=== PATIENT | female | born 1995 | race Caucasian/White ===

== ENCOUNTER 2016-12-31 13:06 | Emergency (ER) | payer BC ==
[2016-12-31] MEDS ORDERED: ONDANSETRON 4 MG TAB.RAPDIS SL ONE (13:14)
--- NOTE | 2016-12-31 13:16 | ER Document Report ---
ED Medical Screen (RME) - General Chief Complaint: Nausea/Vomiting Stated Complaint: VOMITING Time Seen by Provider: 12/31/16 13:13 Mode of Arrival: Wheelchair Information source: Patient TRAVEL OUTSIDE OF THE U.S. IN LAST 30 DAYS: No - HPI Patient complains to provider of: Nausea and vomiting Onset: This morning Notes: 12/31/16 13:15 Patient is a 21-year-old female presenting to the emergency room today complaining of nausea and vomiting with diffuse abdominal pain that started this morning, she has been having intermittent episodes and has been seen by her primary care provider with no official diagnosis, she denies diarrhea, no fever, denies being - Related Data Allergies/Adverse Reactions: No Known Allergies Allergy (Verified 12/31/16 13:12) Past Medical History Renal/ Medical History: Denies: Hx Peritoneal Dialysis Physical Exam - Vital signs Vitals: Temp Pulse Resp BP Pulse Ox 97.5 F 77 16 124/86 H 100 12/31/16 13:08 12/31/16 13:08 12/31/16 13:08 12/31/16 13:08 12/31/16 13:08 Course - Vital Signs Vital signs: Temp Pulse Resp BP Pulse Ox 97.5 F 77 16 124/86 H 100 12/31/16 13:08 12/31/16 13:08 12/31/16 13:08 12/31/16 13:08 12/31/16 13:08
[2016-12-31] MEDS: NORMAL SALINE 1000 ML 1,000 ML IV PRN ×2 (13:23→13:54)
[2016-12-31 13:38] LABS: ABSOLUTE BASOPHILS # (AUTO) 0.1 10^3/uL (0.0-0.2); ABSOLUTE EOSINOPHILS # (AUTO) 0.1 10^3/uL (0.0-0.6); ABSOLUTE MONOCYTES (AUTO) 0.4 10^3/uL (0.1-1.4); ABSOLUTE NEUT (AUTO) 10.2 10^3/uL (1.7-8.2); BASOPHILS % (AUTO) 0.9 % (0-2); EOSINOPHILS % (AUTO) 0.6 % (0-6); HEMATOCRIT 39.4 % (36.0-47.0); HEMOGLOBIN 13.2 g/dL (12.0-15.5); HGB HCT DIFFERENCE 0.2; LYMPHOCYTES % (AUTO) 15.4 % (13-45); MEAN CORPUSCULAR HEMOGLOBIN 28.3 pg (27.0-33.4); MEAN CORPUSCULAR HGB CONC 33.6 g/dL (32.0-36.0); MEAN CORPUSCULAR VOLUME 84 fl (80-97); MONOCYTES % (AUTO) 2.8 % (3-13); RED BLOOD COUNT 4.68 10^6/uL (3.72-5.28); RED CELL DISTRIBUTION WIDTH 13.8 % (11.5-14.0); SEGMENTED NEUTROPHILS % (AUTO) 80.3 % (42-78); WHITE BLOOD COUNT 12.8 10^3/uL (4.0-10.5)
[2016-12-31] MEDS ORDERED: ONDANSETRON HCL INJ/PF 4 MG/2 ML SDV IV ONE (13:44)
--- NOTE | 2016-12-31 13:48 | ER Document Report ---
ED GI/ - General Chief Complaint: Nausea/Vomiting Stated Complaint: VOMITING Time Seen by Provider: 12/31/16 13:13 Mode of Arrival: Wheelchair Information source: Patient Notes: Patient presents complaining of abdominal pain with nausea and vomiting that started yesterday. Patient states that her vomiting symptoms started first and then the abdominal pain came afterwards. Patient states that she has had frequent episodes of abdominal pain with nausea and vomiting off and on for the past 5 months. Patient denies any diarrhea, fever, or urinary symptoms. Patient denies any vaginal bleeding or discharge. Patient denies any concern for . TRAVEL OUTSIDE OF THE U.S. IN LAST 30 DAYS: No - HPI Patient complains to provider of: Abdominal pain, Vomiting. No: Diarrhea Onset: Yesterday Timing/Duration: Persistent Quality of pain: No pain Severity at maximum: Mild Severity in ED: None Pain Level: Denies Vaginal bleeding (Compared to normal period): None Sexual history: Active Associated symptoms: Nausea, Vomiting. denies: Constipation, Diarrhea, Dysuria , Fever, Loss of appetite, Urinary hesitancy, Urinary frequency, Urinary retention, Urinary urgency, Vaginal discharge Exacerbated by: Denies Relieved by: Denies Similar symptoms previously: Yes Recently seen / treated by doctor: No - Related Data Allergies/Adverse Reactions: No Known Allergies Allergy (Verified 12/31/16 13:12) Past Medical History - General Information source: Patient - Social History Smoking Status: Never Smoker Frequency of alcohol use: None Drug Abuse: None Lives with: Spouse/Significant other Family History: Reviewed & Not Pertinent - Medical History Medical History: Negative Renal/ Medical History: Denies: Hx Peritoneal Dialysis Surgical Hx: Negative Review of Systems - Review of Systems Constitutional: No symptoms reported. denies: Fever, Recent illness EENT: No symptoms reported Cardiovascular: No symptoms reported. denies: Chest pain Respiratory: No symptoms reported. denies: Cough, Wheezing Gastrointestinal: Abdominal pain, Nausea, Vomiting, Poor fluid intake. denies: Diarrhea, Constipation Genitourinary: No symptoms reported. denies: Dysuria, Flank pain Female Genitourinary: No symptoms reported Musculoskeletal: No symptoms reported. denies: Back pain Skin: No symptoms reported Hematologic/Lymphatic: No symptoms reported Neurological/Psychological: No symptoms reported. denies: Confusion, Headaches Physical Exam - Vital signs Vitals: Temp Pulse Resp BP Pulse Ox 97.5 F 77 16 124/86 H 100 12/31/16 13:08 12/31/16 13:08 12/31/16 13:08 12/31/16 13:08 12/31/16 13:08 - General General appearance: Appears well, Alert In distress: None - HEENT Head: Normocephalic, Atraumatic Eyes: Normal Conjunctiva: Normal Nasal: Normal Mouth/Lips: Normal Mucous membranes: Normal Pharynx: Normal Neck: Normal, Supple. No: Lymphadenopathy - Respiratory Respiratory status: No respiratory distress Chest status: Nontender Breath sounds: Normal. No: Rales, Rhonchi, Stridor, Wheezing Chest palpation: Normal - Cardiovascular Rhythm: Regular Heart sounds: S1 appreciated, S2 appreciated Murmur: No - Abdominal Inspection: Normal Distension: No distension Bowel sounds: Normal Tenderness: Nontender Organomegaly: No organomegaly - Back Back: Normal, Nontender. No: CVA tenderness - Extremities General upper extremity: Normal inspection, Normal ROM General lower extremity: Normal inspection, Normal ROM - Neurological Neuro grossly intact: Yes Cognition: Normal [place] Coma Scale Eye Opening: Spontaneous [place] Coma Scale Verbal: Oriented [place] Coma Scale Motor: Obeys Commands [place] Coma Scale Total: 15 - Psychological Associated symptoms: Normal affect, Normal mood - Skin Skin Temperature: Warm Skin Moisture: Dry Skin Color: Normal Course - Re-evaluation Re-evalutation: 12/31/16 15:46 Patient states the vomiting had stopped but then just started up. Patient without any abdominal tenderness at this time. 12/31/16 16:30 Patient is requesting to have food as she thinks that her symptoms are a result of not eating 12/31/16 17:22 Patient continues to deny any abdominal pain. Patient states that her nausea symptoms have resolved. Patient is tolerating oral fluids without emesis. Crackers provided. 12/31/16 17:59 Patient's abdomen soft, nontender, no guarding. Patient tolerating juice and crackers without emesis. Patient states she is feeling much better. Patient advised that she will need to follow-up with metal spraying machine operator for further evaluation. - Vital Signs Vital signs: Temp Pulse Resp BP Pulse Ox 98.4 F 78 16 117/66 99 12/31/16 18:14 12/31/16 18:14 12/31/16 13:08 12/31/16 18:14 12/31/16 18:14 - Laboratory Result Diagrams: 12/31/16 13:20 12/31/16 13:20 Laboratory results interpreted by me: 12/31/16 12/31/16 12/31/16 13:20 13:20 14:34 WBC 12.8 H Seg Neutrophils % 80.3 H Monocytes % 2.8 L Absolute Neutrophils 10.2 H Carbon Dioxide 18 L Anion Gap 20 H Glucose 151 H Calcium 11.0 H Total Protein 8.3 H Albumin 5.4 H Urine Ketones 20 H 12/31/16 16:30 Labs- Entire Visit 12/31/16 12/31/16 12/31/16 13:20 13:20 13:20 WBC 12.8 H RBC 4.68 Hgb 13.2 Hct 39.4 MCV 84 MCH 28.3 MCHC 33.6 RDW 13.8 Plt Count 276 Seg Neutrophils % 80.3 H Lymphocytes % 15.4 Monocytes % 2.8 L Eosinophils % 0.6 Basophils % 0.9 Absolute Neutrophils 10.2 H Absolute Lymphocytes 2.0 Absolute Monocytes 0.4 Absolute Eosinophils 0.1 Absolute Basophils 0.1 Sodium 141.8 Potassium 4.0 Chloride 104 Carbon Dioxide 18 L Anion Gap 20 H BUN 8 Creatinine 0.65 Est GFR ( Amer) > 60 Est GFR (Non-Af Amer) > 60 Glucose 151 H Calcium 11.0 H Total Bilirubin 1.2 Direct Bilirubin 0.4 Indirect Bilirubin Not Reportable Neonat Total Bilirubin Not Reportable AST 29 ALT 28 Alkaline Phosphatase 74 Total Protein 8.3 H Albumin 5.4 H Lipase 97.6 Serum HCG, Qual NEGATIVE Urine Color Urine Appearance Urine pH Ur Specific [place] Urine Protein Urine Glucose (UA) Urine Ketones Urine Blood Urine Nitrite Urine Bilirubin Urine Urobilinogen Ur Leukocyte Esterase Urine WBC (Auto) Urine RBC (Auto) Urine Bacteria (Auto) Urine Ascorbic Acid 12/31/16 14:34 WBC RBC Hgb Hct MCV MCH MCHC RDW Plt Count Seg Neutrophils % Lymphocytes % Monocytes % Eosinophils % Basophils % Absolute Neutrophils Absolute Lymphocytes Absolute Monocytes Absolute Eosinophils Absolute Basophils Sodium Potassium Chloride Carbon Dioxide Anion Gap BUN Creatinine Est GFR ( Amer) Est GFR (Non-Af Amer) Glucose Calcium Total Bilirubin Direct Bilirubin Indirect Bilirubin Neonat Total Bilirubin AST ALT Alkaline Phosphatase Total Protein Albumin Lipase Serum HCG, Qual Urine Color STRAW Urine Appearance CLEAR Urine pH 8.0 Ur Specific [place] 1.005 Urine Protein NEGATIVE Urine Glucose (UA) NEGATIVE Urine Ketones 20 H Urine Blood NEGATIVE Urine Nitrite NEGATIVE Urine Bilirubin NEGATIVE Urine Urobilinogen NEGATIVE Ur Leukocyte Esterase NEGATIVE Urine WBC (Auto) 1 Urine RBC (Auto) 1 Urine Bacteria (Auto) TRACE Urine Ascorbic Acid NEGATIVE 12/31/16 17:59 Labs- Entire Visit 12/31/16 12/31/16 12/31/16 13:20 13:20 13:20 WBC 12.8 H RBC 4.68 Hgb 13.2 Hct 39.4 MCV 84 MCH 28.3 MCHC 33.6 RDW 13.8 Plt Count 276 Seg Neutrophils % 80.3 H Lymphocytes % 15.4 Monocytes % 2.8 L Eosinophils % 0.6 Basophils % 0.9 Absolute Neutrophils 10.2 H Absolute Lymphocytes 2.0 Absolute Monocytes 0.4 Absolute Eosinophils 0.1 Absolute Basophils 0.1 Sodium 141.8 Potassium 4.0 Chloride 104 Carbon Dioxide 18 L Anion Gap 20 H BUN 8 Creatinine 0.65 Est GFR ( Amer) > 60 Est GFR (Non-Af Amer) > 60 Glucose 151 H Calcium 11.0 H Total Bilirubin 1.2 Direct Bilirubin 0.4 Indirect Bilirubin Not Reportable Neonat Total Bilirubin Not Reportable AST 29 ALT 28 Alkaline Phosphatase 74 Total Protein 8.3 H Albumin 5.4 H Lipase 97.6 Serum HCG, Qual NEGATIVE Urine Color Urine Appearance Urine pH Ur Specific [place] Urine Protein Urine Glucose (UA) Urine Ketones Urine Blood Urine Nitrite Urine Bilirubin Urine Urobilinogen Ur Leukocyte Esterase Urine WBC (Auto) Urine RBC (Auto) Urine Bacteria (Auto) Urine Ascorbic Acid 12/31/16 14:34 WBC RBC Hgb Hct MCV MCH MCHC RDW Plt Count Seg Neutrophils % Lymphocytes % Monocytes % Eosinophils % Basophils % Absolute Neutrophils Absolute Lymphocytes Absolute Monocytes Absolute Eosinophils Absolute Basophils Sodium Potassium Chloride Carbon Dioxide Anion Gap BUN Creatinine Est GFR ( Amer) Est GFR (Non-Af Amer) Glucose Calcium Total Bilirubin Direct Bilirubin Indirect Bilirubin Neonat Total Bilirubin AST ALT Alkaline Phosphatase Total Protein Albumin Lipase Serum HCG, Qual Urine Color STRAW Urine Appearance CLEAR Urine pH 8.0 Ur Specific [place] 1.005 Urine Protein NEGATIVE Urine Glucose (UA) NEGATIVE Urine Ketones 20 H Urine Blood NEGATIVE Urine Nitrite NEGATIVE Urine Bilirubin NEGATIVE Urine Urobilinogen NEGATIVE Ur Leukocyte Esterase NEGATIVE Urine WBC (Auto) 1 Urine RBC (Auto) 1 Urine Bacteria (Auto) TRACE Urine Ascorbic Acid NEGATIVE Discharge - Discharge Clinical Impression: Nausea and vomiting Qualifiers: Vomiting type: unspecified Vomiting Intractability: non-intractable Qualified Code(s): R11.2 - Nausea with vomiting, unspecified Condition: Stable Disposition: HOME, SELF-CARE Instructions: Antinausea Medication ([facility]), Family Physicians / Practices, Intravenous (IV) Fluids ([facility]), Vomiting ([facility]) Additional Instructions: Return immediately for any new or worsening symptoms Followup with your primary care provider, call tomorrow to make a followup appointment Follow-up with a metal spraying machine operator for further evaluation Prescriptions: Omeprazole Magnesium [Prilosec Otc] 20 mg PO DAILY #15 tablet. Ondansetron HCl [Zofran 4 mg Tablet] 1 - 2 tab PO Q6 PRN #15 tablet PRN Reason: Sucralfate [Carafate 1 gm Tablet] 1 gm PO ACHS #40 tablet Referrals: [facility] [Provider Group] - Follow up as needed SEAN NEGRON MD [ACTIVE STAFF] - Follow up in 3-5 days ERIC WHITE MD [ACTIVE STAFF] - Follow up as needed
[2016-12-31 13:58] LABS: ALANINE AMINOTRANSFERASE 28 U/L (9-52); ALBUMIN 5.4 g/dL (3.5-5.0); ALKALINE PHOSPHATASE 74 U/L (38-126); ASPARTATE AMINO TRANSFERASE 29 U/L (14-36); BILIRUBIN,DIRECT 0.4 mg/dL (0.0-0.4); BILIRUBIN,TOTAL 1.2 mg/dL (0.2-1.3); BLOOD UREA NITROGEN 8 mg/dL (7-20); CARBON DIOXIDE 18 mmol/L (22-30); CHLORIDE 104 mmol/L (98-107); CREATININE RESULT 0.65 mg/dL (0.52-1.25); GLUCOSE 151 mg/dL (75-110); LIPASE 97.6 U/L (23-300); SODIUM 141.8 mmol/L (137-145); TOTAL PROTEIN 8.3 g/dL (6.3-8.2)
[2016-12-31 14:02] LABS: ANION GAP 20 (5-19)
[2016-12-31 15:05] LABS: APPEARANCE,URINE CLEAR; BILIRUBIN,URINE NEGATIVE (NEGATIVE); GLUCOSE, URINE NEGATIVE (NEGATIVE); KETONES,URINE 20 mg/dL (NEGATIVE); LEUKOCYTE ESTERASE,URINE NEGATIVE (NEGATIVE); NITRITE,URINE NEGATIVE (NEGATIVE); PROTEIN,URINE NEGATIVE (NEGATIVE); URINE SPECIFIC GRAVITY 1.005; UROBILINOGEN,URINE NEGATIVE mg/dL (<2.0)
[2016-12-31] MEDS ORDERED: METOCLOPRAMIDE HCL INJ/PF 10 MG/2 ML SDV IV ONE (15:46)
[2016-12-31] MEDS ORDERED: NORMAL SALINE 1000 ML 1,000 ML IV PRN (15:46)
[2016-12-31] MEDS ORDERED: FAMOTIDINE INJ/PF 20 MG/2 ML SDV IV ONE (16:09)
[2016-12-31 18:35] VITALS: BP 117/66
== END 2016-12-31 18:31 | disposition home or self-care (01) ==
LOC: ER 13:06
DX: R11.2 Nausea with vomiting, unspecified (principal); R10.9 Unspecified abdominal pain
CPT/HCPCS: 99283; 96361; 96374; 96375; 36415; 87086; 83690; 84703; 85025; 80053; 81001; S0119; J2765; J2405; J7030; S0028

== ENCOUNTER 2017-07-07 18:49 | Emergency (ER) | payer BC ==
--- NOTE | 2017-07-07 19:17 | ER Document Report ---
ED Medical Screen (RME) - General Chief Complaint: Suicidal Ideation Stated Complaint: IVC Time Seen by Provider: 07/07/17 19:10 Mode of Arrival: Ambulatory Information source: Patient Notes: 21-year-old female presents with concerns of self-harm gesture. Patient denies suicidal ideations states that she took 5 hydrocodone's which are her own pills so she can go to sleep patient states she does not know why she did this but that she is not happy with herself I have greeted and performed a rapid initial assessment of this patient. A comprehensive ED assessment and evaluation of the patient, analysis of test results and completion of the medical decision making process will be conducted by additional ED providers. PHYSICAL EXAMINATION: GENERAL: Well-appearing, well-nourished and in no acute distress. HEAD: Atraumatic, normocephalic. EYES: Pupils equal round extraocular movements intact, conjunctiva are normal. ENT: Nares patent NECK: Normal range of motion LUNGS: No respiratory distress Musculoskeletal: Normal range of motion NEUROLOGICAL: Normal speech, normal gait. PSYCH: Normal mood, normal affect. SKIN: Warm, Dry, normal turgor, no rashes or lesions noted. TRAVEL OUTSIDE OF THE U.S. IN LAST 30 DAYS: No - HPI Onset: Just prior to arrival Onset/Duration: Sudden Quality of pain: No pain Severity: None Pain Level: Denies Associated Symptoms: None Exacerbated by: Denies Relieved by: Denies Similar symptoms previously: No Recently seen / treated by doctor: No - Related Data Allergies/Adverse Reactions: No Known Allergies Allergy (Verified 12/31/16 13:12) Past Medical History - Social History Cigarette use (# per day): No Chew tobacco use (# tins/day): No Renal/ Medical History: Denies: Hx Peritoneal Dialysis Physical Exam - Vital signs Vitals: Temp Pulse BP Pulse Ox 97.7 F 86 129/84 H 99 07/07/17 18:56 07/07/17 18:56 07/07/17 18:56 07/07/17 18:56 Course - Vital Signs Vital signs: Temp Pulse Resp BP Pulse Ox 97.7 F 86 129/84 H 99 07/07/17 18:56 07/07/17 18:56 07/07/17 18:56 07/07/17 18:56
[2017-07-07 20:11] LABS: APPEARANCE,URINE SLIGHTLY-CLOUDY; BILIRUBIN,URINE NEGATIVE (NEGATIVE); COLOR,URINE YELLOW; GLUCOSE, URINE NEGATIVE (NEGATIVE); KETONES,URINE 20 mg/dL (NEGATIVE); LEUKOCYTE ESTERASE,URINE SMALL (NEGATIVE); NITRITE,URINE NEGATIVE (NEGATIVE); PROTEIN,URINE NEGATIVE (NEGATIVE); URINE SPECIFIC GRAVITY 1.009; UROBILINOGEN,URINE NEGATIVE mg/dL (<2.0)
[2017-07-07] MEDS ORDERED: CEPHALEXIN 500 MG CAPSULE PO SCH (20:15)
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
[2017-07-07 20:20] LABS: ABSOLUTE EOSINOPHILS # (AUTO) 0.2 10^3/uL (0.0-0.6); ABSOLUTE LYMPHOCYTES (AUTO) 1.4 10^3/uL (0.5-4.7); ABSOLUTE MONOCYTES (AUTO) 0.7 10^3/uL (0.1-1.4); ABSOLUTE NEUT (AUTO) 12.2 10^3/uL (1.7-8.2); BASOPHILS % (AUTO) 0.3 % (0-2); EOSINOPHILS % (AUTO) 1.2 % (0-6); HEMATOCRIT 40.1 % (36.0-47.0); HEMOGLOBIN 13.3 g/dL (12.0-15.5); LYMPHOCYTES % (AUTO) 9.5 % (13-45); MEAN CORPUSCULAR HEMOGLOBIN 28.8 pg (27.0-33.4); MEAN CORPUSCULAR HGB CONC 33.3 g/dL (32.0-36.0); MEAN CORPUSCULAR VOLUME 87 fl (80-97); MONOCYTES % (AUTO) 4.6 % (3-13); PLATELET COUNT 303 10^3/uL (150-450); RED BLOOD COUNT 4.63 10^6/uL (3.72-5.28); RED CELL DISTRIBUTION WIDTH 13.3 % (11.5-14.0); SEGMENTED NEUTROPHILS % (AUTO) 84.4 % (42-78); TOTAL CELLS COUNTED % (AUTO) 100 %; WHITE BLOOD COUNT 14.4 10^3/uL (4.0-10.5)
[2017-07-07 20:27] LABS: URINE AMPHETAMINES SCREEN NEGATIVE; URINE BARBITURATES SCREEN NEGATIVE; URINE BENZODIAZEPINES SCREEN NEGATIVE; URINE COCAINE SCREEN NEGATIVE; URINE MARIJUANA (THC) SCREEN UNCONFIRMED POSITIVE; URINE METHADONE SCREEN NEGATIVE; URINE PHENCYCLIDINE SCREEN NEGATIVE
[2017-07-07 20:31] LABS: ALANINE AMINOTRANSFERASE 32 U/L (9-52); ALBUMIN 4.9 g/dL (3.5-5.0); ALKALINE PHOSPHATASE 86 U/L (38-126); ANION GAP 12 (5-19); ASPARTATE AMINO TRANSFERASE 23 U/L (14-36); BILIRUBIN,DIRECT 0.4 mg/dL (0.0-0.4); BILIRUBIN,TOTAL 0.7 mg/dL (0.2-1.3); BLOOD UREA NITROGEN 9 mg/dL (7-20); CALCIUM 10.1 mg/dL (8.4-10.2); CARBON DIOXIDE 28 mmol/L (22-30); CHLORIDE 101 mmol/L (98-107); GLUCOSE 93 mg/dL (75-110); POTASSIUM 3.7 mmol/L (3.6-5.0); SODIUM 140.8 mmol/L (137-145)
[2017-07-07 20:32] LABS: ACETAMINOPHEN < 10 ug/mL (10-30); ALCOHOL < 10 mg/dL (NONE DETECTED); SALICYLATE < 1.0 mg/dL (2.0-20.0)
--- NOTE | 2017-07-07 22:05 | EKG REPORT ---
SEVERITY:- NORMAL ECG - SINUS RHYTHM : Confirmed by: Naomi Hoyt 07-Jul-2017 22:04:27
[2017-07-07] MEDS: CEPHALEXIN 500 MG CAPSULE PO SCH (23:18)
--- NOTE | 2017-07-08 13:03 | PSYCHOLOGICAL NOTE ---
Psych Note - Psych Note Psych Note: Reason for consult: IVC, suicidal ideation Consent Permissions: , [place] Pt presents to the ED under IVC paperwork with Deputy Gomez. Per IVC paperwork pt stated to that she was going to kill herself. Per paperwork pt took 5 hydrocodone pills. When [place] arrived pt was on the floor and refused to talk to deputy. Pt has hx of depression and has been committed in the past. Per paperwork, pt has been very depressed and hitting things and hitting her face. Patient disclosed arriving to [facility] Ed via police because "I had a bad freakout...said things I should not have said and did things I should not have done." She continued to disclose that she suffers from anxiety and "sometimes I let it overwhelm me." Patient reports that she is not currently in therapy and does not have interest in going to a therapist; "I do not know I just do not like.... Talking with someone I do not know... Never really found it to be helpful...I never liked going." She continued to state that she understands her triggers are focused on situations that seem to be out of her control; "I think it is a control thing." She identifies talking it out with friends and family, listening to music, "even talking it out myself" in taking deep breaths help control her anxiety. She reports "I think that is why it hit so hard last night because I pushed everyone away yesterday." She identifies it is worse when she is by herself because she has obsessive thoughts that she fixates on. While this is been long-standing panic attacks have started just within this last year. She identifies multiple triggers leading up to panic attacks such as changing jobs moving to [place] and her 's last appointment being different with less communication availability. Patient continued to disclose "I never feel like I want to I just do not want to feel the anxiety." Patient takes clomipramine 50mg nightly; recently increased dosage in March from 25 mg. Patient's psychiatrist is in [place] at which she travels monthly to see; "my wood die maker is down there still also so I take a trip once a month to go see my wood die maker and psychiatrist." Patient joined clinician and patient at bedside. He disclosed he is comfortable with the patient returning home. He feels this was her anxiety after having an argument a couple days ago. He agrees to be part of the patient 's discharge plan to ensure she does not have acess medication or weapons and follows through with her mental health treatment. Patient is alert and orientated to person, place, time and circumstance. Mood is overall euthymic with congruent affect as evidenced by laughing and smiling and engaging with clinician. Patient does become slightly tearful when discussing anxiety and the impact it has on her life. Patient denies current suicidal and homicidal ideation stating "I never feel like I want to I just do not want to feel the anxiety." Delusions are absent and behaviors congruent with intact reality based presentation i.e. organized, linear, rational thinking. Intellectual abilities appear to be within the average range. Conversational speech was within normal rate, tone and prosody. Eye contact was well-maintained. Attention and concentration are good. Insight, judgment, impulse control are good as evidenced by patient's ability to review thoughts and emotions surrounding events in identifying triggers and why her coping skills did not adequately assist during last night event. 300.3 (F42) obsessive-compulsive disorder; intrusive, obsessive fixated thoughts per history provided by patient
[2017-07-08] MEDS: CEPHALEXIN 500 MG CAPSULE PO SCH (14:50)
[2017-07-08 16:28] VITALS: BP 99/79
--- NOTE | 2017-07-08 20:48 | ER Document Report ---
Doctor's Note Notes: 07/08/17 20:43 Patient is feeling better, no longer feeling suicidal, states that she is willing to follow-up with a therapist or counselor here locally in [place]. Agrees with new medications as recommended by mental health to include BuSpar and Effexor. Patient is no acute distress. Patient has no symptoms of urinary tract infection at this time, I reviewed her urine and the specimen is already it shows group B strep, this is colonization/contamination not true infection. Patient will not be started on antibiotics. Discharged home.
== END 2017-07-08 16:28 | disposition home or self-care (01) ==
LOC: ER 18:49
DX: T40.2X2A Poisoning by other opioids, intentional self-harm, initial encounter (principal); Y92.009 Unspecified place in unspecified non-institutional (private) residence as the place of occurrence of the external cause; X58.XXXA Exposure to other specified factors, initial encounter; N39.0 Urinary tract infection, site not specified; R82.71 Bacteriuria; R46.81 Obsessive-compulsive behavior; R45.851 Suicidal ideations
CPT/HCPCS: 36415; 80053; 80307; 81001; 84443; 84703; 85025; 87086; 87088; 93005; 93010; 99285

== ENCOUNTER 2017-11-18 14:01 | Emergency (ER) | payer BC ==
[2017-11-18 14:06] VITALS: BP 140/86
--- NOTE | 2017-11-18 14:47 | ER Document Report ---
ED Psych Disorder / Suicide - General Chief Complaint: Psych Problem Stated Complaint: PSYCH PROBLEM Time Seen by Provider: 11/18/17 14:42 Notes: 22-year-old female patient brought to the ER for evaluation by her friend. Friend states that she is "dissociated". States that she will not stop crying. 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 Patient recently moved here from [place]. Friend just moved here last night. Patient denies any suicidal ideation. Denies any homicidal ideation. Denies any hallucinations. Denies any thoughts of wanting to harm herself or others. When asked why she is crying she says I do not know. Friend states that she has been trying to wean herself off of her medications but patient does not concur. Patient denies any other symptoms at this time. States that she actually feels better since she came to the ER. TRAVEL OUTSIDE OF THE [place] IN LAST 30 DAYS: No - HPI Patient complains to provider of: No: Aggression, Agitated, Bizarre behavior, Hallucinating, Homicidal ideation, Homicidal plan, Homicidal attempt, Overdose, Suicidal ideation, Suicidal plan, Suicidal attempt, Self injury, Other Onset: Just prior to arrival Quality of pain: No pain Severity: Mild Pain Level: 0 - Related Data Allergies/Adverse Reactions: No Known Allergies Allergy (Verified 11/18/17 14:03) Past Medical History - General Information source: Patient - Social History Smoking Status: Never Smoker Cigarette use (# per day): No Frequency of alcohol use: None Drug Abuse: None Lives with: Spouse/Significant other Family History: Reviewed & Not Pertinent Patient has suicidal ideation: No Patient has homicidal ideation: No Renal/ Medical History: Denies: Hx Peritoneal Dialysis Psychiatric Medical History: Reports: Hx Depression Review of Systems - Review of Systems Constitutional: denies: Fever, Malaise, Weakness EENT: denies: Double vision, Difficulty swallowing Cardiovascular: denies: Chest pain, Palpitations, Heart racing Gastrointestinal: denies: Abdominal pain, Diarrhea, Nausea, Vomiting Genitourinary: denies: Burning, Dysuria, Discharge Female Genitourinary: Last menstrual period - Today, Vaginal bleeding. denies: , Heavy/abnormal periods, Irregular period, Vaginal discharge Musculoskeletal: denies: Back pain, Joint pain, Muscle pain Skin: denies: Change in color, Dryness, Lesions, Lumps Hematologic/Lymphatic: denies: Anemia, Blood clots, Easy bleeding, Easy bruising Neurological/Psychological: Depression. denies: Weakness, Numbness Physical Exam - Vital signs Vitals: Temp Pulse Resp BP Pulse Ox 99.1 F 113 H 14 140/86 H 98 11/18/17 14:04 11/18/17 14:04 11/18/17 14:04 11/18/17 14:04 11/18/17 14:04 Interpretation: Normal - General General appearance: Appears well, Alert - HEENT Head: Normocephalic, Atraumatic Eyes: Normal Pupils: PERRL - Respiratory Respiratory status: No respiratory distress Chest status: Nontender Breath sounds: Normal Chest palpation: Normal - Cardiovascular Rhythm: Regular Heart sounds: Normal auscultation Murmur: No - Abdominal Inspection: Normal Distension: No distension Bowel sounds: Normal Tenderness: Nontender Organomegaly: No organomegaly - Back Back: Normal, Nontender - Extremities General upper extremity: Normal inspection, Nontender, Normal color, Normal ROM , Normal temperature General lower extremity: Normal inspection, Nontender, Normal color, Normal ROM , Normal temperature, Normal weight bearing. No: Merlin's sign - Neurological Neuro grossly intact: Yes Cognition: Normal Orientation: AAOx4 [place] Coma Scale Eye Opening: Spontaneous [place] Coma Scale Verbal: Oriented [place] Coma Scale Motor: Obeys Commands [place] Coma Scale Total: 15 Speech: Normal Motor strength normal: LUE, RUE, LLE, RLE Sensory: Normal Notes: Mini-Mental status exam normal. - Psychological Associated symptoms: Normal affect, Tearful. No: Agitated, Angry, Anxious, Confused - Skin Skin Temperature: Warm Skin Moisture: Dry Skin Color: Normal Course - Re-evaluation Re-evalutation: 11/18/17 14:56 Currently patient is not homicidal, suicidal, normal mental status exam, normal neuro exam, not endorsing hallucinations. Does not see or hear anything that no one else can see her here. Does not have any plans to harm herself or others. Endorses that she has taken her medication today. Patient was offered on multiple times the opportunity to visit with mental health but she has refused. She does not want any labs done. A friend is with her. Friend was given instructions that at this time there are no clear-cut reasons why I should place patient on a involuntary commitment papers. Patient is here voluntarily. Patient was offered mental health services today as well as counseling services however she does not want that. I find nothing further that I can do at this time. Patient likely having some anxiety reaction due to her being out of town. I will prescribe her 8 Xanax tablets that she can take as needed twice a day. Services were provided. Will discharge at this time in stable condition. - Vital Signs Vital signs: Temp Pulse Resp BP Pulse Ox 99.1 F 113 H 14 140/86 H 98 11/18/17 14:04 11/18/17 14:04 11/18/17 14:04 11/18/17 14:04 11/18/17 14:04 Discharge - Discharge Clinical Impression: Transient adjustment reaction with anxiety Depression (emotion) Qualifiers: Depression Type: unspecified Qualified Code(s): F32.9 - Major depressive disorder, single episode, unspecified Condition: Good Disposition: HOME, SELF-CARE Instructions: Anxiety ([facility]), Depression ([facility]) Additional Instructions: You have been seen and evaluated in the emergency department. A mental health evaluation was offered but you have decided to go home. In the event that you begin to develop worsening symptoms concerning for severe anxiety or depression noted that we are always here. We are more than happy to reevaluate you. Take your regular medications as prescribed. In the event that your anxiety is getting worse you may take the medication which was prescribed today. If this is not working and you are feeling worse please return for repeat evaluation. Prescriptions: Alprazolam 0.25 mg PO BID PRN 4 Days #8 tablet PRN Reason: Anxiety/Agitation Referrals: ANNE YORK MD [NO LOCAL MD] - Follow up as needed
== END 2017-11-18 14:49 | disposition home or self-care (01) ==
LOC: ER 14:01
DX: F43.29 Adjustment disorder with other symptoms (principal); F32.9 Major depressive disorder, single episode, unspecified
CPT/HCPCS: 99283